=== PATIENT | male | born 1960 | race African-American/Black ===

== ENCOUNTER 2017-06-08 18:32 | Emergency (ER) | payer OTHER ==
[~2017-06-08] VITALS: Ht 182.9 cm; Wt 90.7 kg
[2017-06-08 18:32] VITALS: BP_SYST 147
[~2017-06-08 18:32] MED LIST: ALBU17AE26 IH; HYDR115S2 PO; OXYC-133; PROM25TA15 PO; PSYL3.4P6 PO
[2017-06-08] MEDS ORDERED: HYDROmorphone 2 MG/ML VIAL IM ONE (21:15)
[2017-06-08] MEDS ORDERED: PROMETHAZINE HCL 25 MG TABLET PO ONE (21:15)
[2017-06-08] MEDS ORDERED: PROMETHAZINE HCL 25 MG TABLET ONE (22:10)
[2017-06-08] MEDS ORDERED: HYDROmorphone 1 MG INJ. 1 MG/ML AMPUL IM ONE (23:45)
[2017-06-09] MEDS ORDERED: DIPH-TET-PERTUS Vaccine 0.5 ML VIAL (ADACEL) I.M. ONE
[2017-06-09] MEDS ORDERED: PROMETHAZINE HCL 25 MG/ML AMP IVP ONE
[2017-06-09 00:40] VITALS: BP_SYST 156
== END 2017-06-09 00:40 | disposition home or self-care (01) ==
LOC: SED 18:32
DX: K50.918 Crohn's disease, unspecified, with other complication (principal); G89.29 Other chronic pain; I73.89 Other specified peripheral vascular diseases; J45.909 Unspecified asthma, uncomplicated; Z88.2 Allergy status to sulfonamides; Z88.5 Allergy status to narcotic agent; Z91.013 Allergy to seafood
CPT/HCPCS: 12001; 90471; 90715; 96372; 99284; J1170 ×2; J2550; Q0169

== ENCOUNTER 2018-06-18 23:47 | Emergency (ER) | payer OTHER ==
[~2018-06-18] VITALS: Ht 180.3 cm; Wt 81.6 kg
--- NOTE | 2018-06-19 00:05 | NUR ---
Patient to ER bed 08 to gown for evaluation. Side rails up. Report given to AMANUEL Gamez
[2018-06-19 00:07] VITALS: BP_SYST 186
--- NOTE | 2018-06-19 00:07 | NUR ---
APRIL Herrera at bedside examining patient.
--- NOTE | 2018-06-19 00:10 | NUR ---
Patient presents to ER with complaint of abdominal pain 10/10, nausea, and diarrhea x3 days. Patient states he has hx of Crohn's disease. Patient states he takes Oxycontin for pain. No other symptoms or complaints.
--- NOTE | 2018-06-19 00:21 | NUR ---
Patient does not wish to proceed with medical care recommended by Dr. Herrera. Patient given information related to possible complications, up to and including , which could occur as a result of leaving hospital at this time. Patient verbalizes understanding of risks involved leaving against medical advice. Patient has signed AMA form.
== END 2018-06-19 00:39 | disposition left against medical advice (07) ==
LOC: SED 23:47
DX: R10.84 Generalized abdominal pain (principal); Z87.19 Personal history of other diseases of the digestive system; J45.909 Unspecified asthma, uncomplicated; Z90.49 Acquired absence of other specified parts of digestive tract; Z88.2 Allergy status to sulfonamides; Z88.6 Allergy status to analgesic agent; Z88.5 Allergy status to narcotic agent; Z91.013 Allergy to seafood; Z88.8 Allergy status to other drugs, medicaments and biological substances; Z79.899 Other long term (current) drug therapy
CPT/HCPCS: 99281

== ENCOUNTER 2018-12-03 09:09 | Emergency (ER) | payer OTHER ==
[~2018-12-03] VITALS: Ht 180.3 cm; Wt 81.6 kg
[2018-12-03 09:12] VITALS: BP_SYST 159
[2018-12-03] MEDS ORDERED: NACL 0.9% 1,000 ML IV ONE (09:18)
[2018-12-03] MEDS ORDERED: ONDANSETRON HCL 4 MG/2 ML VIAL IVP ONE (09:30)
[2018-12-03] MEDS ORDERED: MORPHINE 4 MG/ML INJ. SYRINGE IVP ONE (09:30)
[2018-12-03 09:46] LABS: BASOPHILS # (AUTO) 0.1 K/uL (0.0-0.2); EOSINOPHILS # (AUTO) 0.1 K/uL (0.0-0.4); EOSINOPHILS % (AUTO) 1.5 % (0.0-4.0); HEMATOCRIT 42.9 % (36-54); HEMOGLOBIN 13.7 g/dL (14.0-18.0); LYMPHOCYTES # (AUTO) 1.6 K/uL (1.0-5.5); LYMPHOCYTES % (AUTO) 21.9 % (20.5-51.5); MEAN CORPUSCULAR HEMOGLOBIN 30 pg (27-31); MEAN CORPUSCULAR HGB CONC 32 % (32-36); MEAN CORPUSCULAR VOLUME 95 fL (79.0-98.0); MONOCYTES # (AUTO) 0.3 K/uL (0.0-1.0); MONOCYTES % (AUTO) 4.5 % (1.7-9.3); NEUTROPHILS # (AUTO) 5.4 K/uL (1.8-7.7); NEUTROPHILS % (AUTO) 71.1 % (40.0-70.0); PLATELET COUNT (AUTO) 259 K/uL (130-430); RED BLOOD CELL COUNT(AUTO) 4.53 MIL/uL (4.2-6.2); RED CELL DISTRIBUTION WIDTH 12.8 % (9.0-15.0); WHITE BLOOD COUNT (AUTO) 7.5 K/uL (4.8-10.8)
[2018-12-03 10:02] LABS: CREATININE 0.83 mg/dL (0.55-1.30)
[2018-12-03 10:06] LABS: PROTHROMBIN TIME 10.5 SECS (9.5-12.5)
[2018-12-03 10:08] LABS: ALBUMIN 3.2 g/dL (3.4-4.8); TOTAL BILIRUBIN 0.4 mg/dL (0.0-1.0)
[2018-12-03] MEDS ORDERED: MORPHINE 4 MG/ML INJ. SYRINGE IM ONE (10:15)
[2018-12-03] MEDS ORDERED: PROMETHAZINE HCL 25 MG/ML AMP IM ONE (10:15)
== END 2018-12-03 10:20 | disposition left against medical advice (07) ==
LOC: SED 09:09
DX: G89.29 Other chronic pain (principal); M54.5 Low back pain; F17.200 Nicotine dependence, unspecified, uncomplicated; J45.909 Unspecified asthma, uncomplicated; Z79.899 Other long term (current) drug therapy; Z76.5 Malingerer [conscious simulation]; Z88.6 Allergy status to analgesic agent; Z88.2 Allergy status to sulfonamides; Z88.5 Allergy status to narcotic agent; Z88.8 Allergy status to other drugs, medicaments and biological substances; Z91.013 Allergy to seafood
CPT/HCPCS: 36415; 71045; 80053; 82150-TC; 82550-TC; 83690-TC; 84484; 85025; 85610-TC; 85730-TC; 99284; J2270

== ENCOUNTER 2019-08-04 12:45 | Emergency (ER) | payer OTHER ==
[~2019-08-04] VITALS: Ht 180.3 cm; Wt 74.8 kg
[2019-08-04 12:45] VITALS: BP_SYST 137
--- NOTE | 2019-08-04 12:45 | NUR ---
BROUGHT BACK TO BED #7 AND TRIAGED. REPORT GIVEN TO MURALI
--- NOTE | 2019-08-04 12:55 | NUR ---
PT IS VERY WELL KNOWN TO THE ER STAFF, PT STATES ABDOMINAL PAIN AND THE ONLY THING THAT HELPS IS PERCOCET. WANTS A PRESCRIPTION.
--- NOTE | 2019-08-04 13:20 | NUR ---
DR DACOSTA AT BEDSIDE.
--- NOTE | 2019-08-04 13:42 | NUR ---
Patient given written and verbal discharge instructions and verbalizes understanding. ER MD discussed with patient the results and treatment provided. Patient in stable condition. ID arm band removed. Rx of PERCOCT (5) given. Patient educated on pain management and to follow up with PMD. Pain Scale 0/10. Opportunity for questions provided and answered. Medication side effect fact sheet provided.
== END 2019-08-04 13:42 | disposition home or self-care (01) ==
LOC: SED 12:45
DX: G89.29 Other chronic pain (principal); R10.9 Unspecified abdominal pain; Z88.6 Allergy status to analgesic agent; Z88.5 Allergy status to narcotic agent; Z88.8 Allergy status to other drugs, medicaments and biological substances; Z91.013 Allergy to seafood; Z79.899 Other long term (current) drug therapy
CPT/HCPCS: 99283

== ENCOUNTER 2021-06-25 15:45 | Emergency (ER) | payer OTHER ==
[~2021-06-25] VITALS: Ht 180.3 cm; Wt 70.8 kg
--- NOTE | 2021-06-25 15:50 | NUR ---
Placed in room 7 . Placed on statue maker, blood pressure machine and pulse oximeter. To gown for exam. Side rails up.
[2021-06-25 15:53] VITALS: BP_SYST 189
--- NOTE | 2021-06-25 16:06 | NUR ---
APRIL Glass at bedside examining patient.
--- NOTE | 2021-06-25 16:10 | NUR ---
Pt refusing abdominal x-ray, Dr. Glass aware, cancelled order.
[2021-06-25] MEDS ORDERED: OXYCODONE/ACETAMINOPHEN 5-325 TABLET PO ONE (16:30)
[2021-06-25 16:36] VITALS: BP_SYST 189
--- NOTE | 2021-06-25 16:38 | NUR ---
Pt Dr. Maria Luisa egan aware
== END 2021-06-25 16:38 | disposition left against medical advice (07) ==
LOC: SED 15:45
DX: E86.0 Dehydration (principal); Z53.21 Procedure and treatment not carried out due to patient leaving prior to being seen by health care provider

== ENCOUNTER 2021-12-12 09:37 | Emergency (ER) | payer OTHER, SELFPAY ==
[~2021-12-12] VITALS: Ht 182.9 cm; Wt 83.9 kg
[2021-12-12 10:20] VITALS: BP_SYST 145
[2021-12-12] MEDS ORDERED: OXYCODONE/ACETAMINOPHEN 5-325 TABLET PO ONE (10:30)
[2021-12-12 12:00] VITALS: BP_SYST 145
== END 2021-12-12 12:00 | disposition left against medical advice (07) ==
LOC: SED 09:37
DX: R10.84 Generalized abdominal pain (principal); J45.909 Unspecified asthma, uncomplicated; Z88.8 Allergy status to other drugs, medicaments and biological substances; Z88.6 Allergy status to analgesic agent; Z88.5 Allergy status to narcotic agent; Z88.2 Allergy status to sulfonamides; Z79.899 Other long term (current) drug therapy
CPT/HCPCS: 99281

== ENCOUNTER 2022-02-10 10:23 | Emergency (ER) | payer OTHER, SELFPAY ==
[~2022-02-10] VITALS: Ht 180.3 cm; Wt 81.6 kg
[2022-02-10 10:36] VITALS: BP_SYST 175
--- NOTE | 2022-02-10 10:48 | NUR ---
bib self stating that he has lymph node pain. triage complete room 3
--- NOTE | 2022-02-10 10:55 | NUR ---
while md at bedside pt got up and wlaked out of the department
--- NOTE | 2022-02-10 10:58 | NUR ---
Note undone in EDM - 02/10/22 at 1058 by [id number] Patient given written and verbal discharge instructions and verbalizes understanding. ER discussed with patient the results and treatment provided. Patient in stable condition. ID arm band removed. IV catheter removed intact and dressing applied, no active bleeding. Rx of [] given. Patient educated on pain management and to follow up with PMD. Pain Scale []. Opportunity for questions provided and answered. Medication side effect fact sheet provided.
== END 2022-02-10 10:55 | disposition left against medical advice (07) ==
LOC: SED 10:23
DX: R59.1 Generalized enlarged lymph nodes (principal); J45.909 Unspecified asthma, uncomplicated; Z88.2 Allergy status to sulfonamides; Z88.5 Allergy status to narcotic agent; Z88.8 Allergy status to other drugs, medicaments and biological substances; Z79.899 Other long term (current) drug therapy
CPT/HCPCS: 99281

== ENCOUNTER 2022-08-12 07:38 | Emergency (ER) | payer OTHER ==
[~2022-08-12] VITALS: Ht 180.3 cm; Wt 81.6 kg
[2022-08-12 07:40] VITALS: BP_SYST 178
== END 2022-08-12 08:26 | disposition left against medical advice (07) ==
LOC: SED 07:38
DX: R10.9 Unspecified abdominal pain (principal); G89.29 Other chronic pain; R11.0 Nausea; R19.7 Diarrhea, unspecified; J45.909 Unspecified asthma, uncomplicated; Z88.2 Allergy status to sulfonamides; Z88.3 Allergy status to other anti-infective agents; Z88.5 Allergy status to narcotic agent; Z88.6 Allergy status to analgesic agent; Z88.8 Allergy status to other drugs, medicaments and biological substances; Z91.013 Allergy to seafood; Z79.899 Other long term (current) drug therapy
CPT/HCPCS: 99281